=== PATIENT | female | born 1955 | race Two or more races ===

== ENCOUNTER 2023-02-25 21:15 | Inpatient (IN) | payer OTHER ==
[~2023-02-25] VITALS: Ht 157.5 cm; Wt 95.3 kg
[2023-02-25 22:25] LABS: ALANINE AMINOTRANSFERASE 13 U/L (12-78); ALBUMIN 3.1 g/dL (3.4-5.0); ALKALINE PHOSPHATASE 124 U/L (46-116); ASPARTATE AMINOTRANSFERASE 9 U/L (15-37); BILIRUBIN,DIRECT 0.2 mg/dL (0.0-0.2); BILIRUBIN,TOTAL 0.7 mg/dL (0.2-1.0); CALCIUM, SERUM 9.1 mg/dL (8.5-10.1); CARBON DIOXIDE 25 mmol/L (21-32); CHLORIDE 93 mmol/L (98-107); CREATININE 2.1 mg/dL (0.6-1.3); GLUCOSE 191 mg/dL (74-106); POTASSIUM 4.7 mmol/L (3.5-5.1); SODIUM SERUM 128 mmol/L (136-145); TOTAL PROTEIN, SERUM 7.9 g/dL (6.4-8.2); UREA NITROGEN, BLOOD 69 mg/dL (7-18)
[2023-02-25] MEDS ORDERED: IV NS 0.9% 1,000 ML BAG IV ONE (23:30)
[2023-02-25 23:54] LABS: BASOPHILS % (AUTO) 0.1 % (0.0-2.0); HEMATOCRIT 35 % (33-45); HEMOGLOBIN 11.6 g/dL (11.5-14.8); LYMPHOCYTES # (AUTO) 0.6 K/uL (0.8-4.8); LYMPHOCYTES % (AUTO) 5.4 % (20.0-44.0); MEAN CORPUSCULAR HEMOGLOBIN 32 PG (26.0-33.0); MEAN CORPUSCULAR HGB CONC 33 g/dl (31.0-36.0); MEAN CORPUSCULAR VOLUME 97 fL (82-100); MONOCYTES # (AUTO) 0.8 K/uL (0.1-1.30); MONOCYTES % (AUTO) 7.3 % (2.0-12.0); NEUTROPHILS # (AUTO) 9.3 K/uL (1.8-8.9); NEUTROPHILS % (AUTO) 87.2 % (43.0-81.0); PLATELET COUNT (AUTO) 224 K/uL (150-450); RED BLOOD CELL COUNT(AUTO) 3.66 MIL/uL (4.0-5.2); RED CELL DISTRIBUTION WIDTH 13.5 % (11.5-15.0); WHITE BLOOD COUNT (AUTO) 10.6 K/uL (4.3-11.0)
[2023-02-26] MEDS ORDERED: ONDANSETRON HCL/PF 4 MG/2 ML VIAL IVP PRN (01:00)
[2023-02-26] MEDS ORDERED: MAG HYDROX/AL HYDROX/SIMETH 30 ML UDC PO PRN (01:00)
[2023-02-26] MEDS ORDERED: Z GUARD REMEDY 4 OZ OINT TP PRN (01:00)
[2023-02-26] MEDS ORDERED: MAGNESIUM HYDROXIDE 30 ML UDC PO PRN (01:00)
[2023-02-26] MEDS ORDERED: DEXTROSE 50%-WATER 50 ML DISP.SYRIN IV PRN (01:00)
[2023-02-26] MEDS ORDERED: ZOLPIDEM TARTRATE 5 MG TABLET PO PRN (01:00)
[2023-02-26] MEDS ORDERED: hydrALAZINE HCL IV 20 MG VIAL IV PRN (01:00)
[2023-02-26 07:29] LABS: BASOPHILS % (AUTO) 0.2 % (0.0-2.0); EOSINOPHILS % (AUTO) 0.2 % (0.0-6.0); HEMATOCRIT 30 % (33-45); HEMOGLOBIN 9.9 g/dL (11.5-14.8); LYMPHOCYTES # (AUTO) 1.1 K/uL (0.8-4.8); LYMPHOCYTES % (AUTO) 13.3 % (20.0-44.0); MEAN CORPUSCULAR HEMOGLOBIN 32 PG (26.0-33.0); MEAN CORPUSCULAR HGB CONC 33 g/dl (31.0-36.0); MEAN CORPUSCULAR VOLUME 95 fL (82-100); MONOCYTES # (AUTO) 0.8 K/uL (0.1-1.30); MONOCYTES % (AUTO) 9.8 % (2.0-12.0); NEUTROPHILS # (AUTO) 6.5 K/uL (1.8-8.9); NEUTROPHILS % (AUTO) 76.5 % (43.0-81.0); PLATELET COUNT (AUTO) 193 K/uL (150-450); RED CELL DISTRIBUTION WIDTH 13.3 % (11.5-15.0); WHITE BLOOD COUNT (AUTO) 8.5 K/uL (4.3-11.0)
[2023-02-26] MEDS: ACETAMINOPHEN 325 MG TABLET PO PRN ×2 (08:18→21:43)
[2023-02-26 08:22] LABS: CALCIUM, SERUM 8.5 mg/dL (8.5-10.1); CREATININE 1.9 mg/dL (0.6-1.3); MAGNESIUM 2.2 mg/dL (1.8-2.4); PHOSPHORUS 4.1 mg/dL (2.5-4.9); POTASSIUM 4.8 mmol/L (3.5-5.1)
[2023-02-26] MEDS: BLOOD SUGAR DIAGNOSTIC 1 EACH STRIP IN SCH ×4 (08:24→22:00)
[2023-02-26] MEDS ORDERED: FLUT16SP16 (08:27)
[2023-02-26] MEDS ORDERED: POTA20TA10 PO (08:27)
[2023-02-26] MEDS ORDERED: NEBI2.5T5 PO (08:27)
[2023-02-26] MEDS ORDERED: ROSU10TA2 PO (08:27)
[2023-02-26] MEDS ORDERED: BIOT10004 PO (08:27)
[2023-02-26] MEDS ORDERED: MAGN400T26 PO (08:27)
[2023-02-26] MEDS ORDERED: GUSE100A SQ (08:27)
[2023-02-26] MEDS ORDERED: MONT10TA22 PO (08:27)
[2023-02-26] MEDS ORDERED: HYDR-4077 PO (08:27)
[2023-02-26] MEDS ORDERED: CYAN-51 PO (08:27)
[2023-02-26] MEDS ORDERED: DULO60CA45 PO (08:27)
[2023-02-26] MEDS ORDERED: OMEG1CAP PO (08:27)
[2023-02-26] MEDS ORDERED: METH500T6 PO (08:27)
[2023-02-26] MEDS ORDERED: CETI-108 PO (08:27)
[2023-02-26] MEDS ORDERED: LIDO30AD10 TP (08:27)
[2023-02-26] MEDS ORDERED: ALBU18HF2 IH (08:27)
[2023-02-26] MEDS ORDERED: APRE30TA2 PO (08:27)
[2023-02-26] MEDS ORDERED: NYST60PO TOP (08:27)
[2023-02-26] MEDS ORDERED: TURM500C9 PO (08:27)
[2023-02-26] MEDS ORDERED: MUPI22OI7 TP (08:27)
[2023-02-26] MEDS ORDERED: BUDE10.22 IH (08:27)
[2023-02-26] MEDS ORDERED: TACR30OI4 TP (08:27)
[2023-02-26] MEDS ORDERED: METO5TAB7 PO (08:27)
[2023-02-26 08:29] LABS: THYROID STIMULATING HORMONE 1.385 uIU/mL (0.358-3.74)
[2023-02-26 09:00] VITALS: BP 146/39; TEMP 99.3; O2SAT 97
[2023-02-26] MEDS ORDERED: PANTOPRAZOLE 40 MG VIAL IV SCH (09:00)
[2023-02-26] MEDS: INSULIN REGULAR, HUMAN 100 UNIT/ML 3 ML VIAL SQ PRN ×3 (12:30→23:05)
[2023-02-26 16:00] VITALS: BP 114/50; TEMP 97.7; O2SAT 99
[2023-02-26 20:00] VITALS: BP 118/46; TEMP 98.6; O2SAT 99
[2023-02-26] MEDS: HEPARIN SODIUM, PORCINE 5000 UNITS/1 ML VIAL SQ SCH (21:45)
[2023-02-27] MEDS: BLOOD SUGAR DIAGNOSTIC 1 EACH STRIP IN SCH ×4 (06:47→21:40)
[2023-02-27 07:23] LABS: BASOPHILS % (AUTO) 0.2 % (0.0-2.0); EOSINOPHILS # (AUTO) 0.1 K/uL (0.0-0.7); EOSINOPHILS % (AUTO) 0.9 % (0.0-6.0); HEMATOCRIT 28 % (33-45); HEMOGLOBIN 9.5 g/dL (11.5-14.8); LYMPHOCYTES % (AUTO) 15.1 % (20.0-44.0); MEAN CORPUSCULAR HEMOGLOBIN 33 PG (26.0-33.0); MEAN CORPUSCULAR HGB CONC 35 g/dl (31.0-36.0); MEAN CORPUSCULAR VOLUME 95 fL (82-100); MONOCYTES # (AUTO) 0.6 K/uL (0.1-1.30); NEUTROPHILS # (AUTO) 5.2 K/uL (1.8-8.9); NEUTROPHILS % (AUTO) 74.8 % (43.0-81.0); PLATELET COUNT (AUTO) 188 K/uL (150-450); RED CELL DISTRIBUTION WIDTH 13.5 % (11.5-15.0); WHITE BLOOD COUNT (AUTO) 6.9 K/uL (4.3-11.0)
[2023-02-27 08:00] VITALS: BP 116/40; TEMP 97.8; O2SAT 98
[2023-02-27 08:07] LABS: CALCIUM, SERUM 8.9 mg/dL (8.5-10.1); CREATININE 1.8 mg/dL (0.6-1.3); MAGNESIUM 2.3 mg/dL (1.8-2.4); PHOSPHORUS 3.9 mg/dL (2.5-4.9); POTASSIUM 4.1 mmol/L (3.5-5.1)
[2023-02-27 09:02] LABS: APPEARANCE,URINE SLIGHTLY CLOUDY (CLEAR); BILIRUBIN,URINE NEGATIVE (NEGATIVE); BLOOD, URINE NEGATIVE Ery/uL (NEGATIVE); COLOR,URINE YELLOW (YELLOW); KETONES,URINE NEGATIVE (NEGATIVE); LEUKOCYTE ESTERASE ,URINE TRACE (NEGATIVE); NITRITE, URINE NEGATIVE (NEGATIVE); PH,URINE 6.5 (5.0-8.0); PROTEIN,URINE TRACE mg/dl (NEGATIVE); UGLUCOSE NEGATIVE (NEGATIVE); UROBILINOGEN,URINE 0.2 EU/dL (0.2)
[2023-02-27 09:03] LABS: ADD URINE CULTURE NO; BACTERIA,URINE Rare /HPF (None Seen); RBC,URINE 0-2 /HPF (0-2); SQUAMOUS EPITHELIAL CELL,UR Moderate /HPF (None Seen); WBC,URINE 0-2 /HPF (0-3)
[2023-02-27] MEDS: HEPARIN SODIUM, PORCINE 5000 UNITS/1 ML VIAL SQ SCH ×2 (09:13→21:50)
[2023-02-27 09:14] LABS: EOSINOPHIL,URINE None Seen
[2023-02-27 09:14] LABS: THYROID STIMULATING HORMONE 1.654 uIU/mL (0.358-3.74); URIC ACID 11.3 mg/dL (2.6-7.2)
[2023-02-27] MEDS: PANTOPRAZOLE 40 MG TABLET.DR PO SCH (09:14)
[2023-02-27] MEDS: ACETAMINOPHEN 325 MG TABLET PO PRN (10:05)
[2023-02-27] MEDS: INSULIN REGULAR, HUMAN 100 UNIT/ML 3 ML VIAL SQ PRN ×3 (12:51→22:12)
[2023-02-27] MEDS ORDERED: GUSELKUMAB SQ SCH (13:00)
[2023-02-27] MEDS: hydrALAZINE HCL 50 MG TABLET PO SCH ×3 (13:00→17:01)
[2023-02-27] MEDS ORDERED: cetrizine 10 MG TABLET PO PRN (13:00)
[2023-02-27] MEDS ORDERED: LIDOCAINE 5% (PATCH) 1 EA PATCH TP PRN (13:00)
[2023-02-27] MEDS ORDERED: FLUTICASONE PROPIONATE 16 GM BOTTLE NS PRN (13:00)
[2023-02-27] MEDS ORDERED: BUDESONIDE RESPULE INH 0.5 MG/2 ML AMPUL.NEB NEB PRN (13:30)
[2023-02-27] MEDS ORDERED: ALBUTEROL FS 2.5 MG/0.5 ML VIAL.NEB NEB PRN (13:30)
[2023-02-27] MEDS ORDERED: IPRATROPIUM NEB FS 0.5 MG/2.5 ML AMPUL.NEB NEB PRN (13:30)
[2023-02-27 15:35] VITALS: BP 117/55; TEMP 98.2; O2SAT 97
[2023-02-27] MEDS: METHOCARBAMOL (500MG) 500 MG TABLET PO SCH (16:39)
[2023-02-27] MEDS: MUPIROCIN OINT 2% 22 GM TUBE TP SCH (16:40)
[2023-02-27] MEDS: NYSTATIN TOP POWDER 15 GM BOTTLE TP SCH (16:40)
[2023-02-27 20:00] VITALS: BP 114/61; TEMP 98.2; O2SAT 97
[2023-02-27 20:56] VITALS: BP 114/61; TEMP 98.2; O2SAT 97
[2023-02-27] MEDS: METOPROLOL TARTRATE 25 MG TABLET PO SCH (21:39)
[2023-02-27] MEDS: MONTELUKAST SODIUM (10MG) 10 MG TABLET PO SCH (21:40)
[2023-02-27] MEDS: ATORVASTATIN 10 MG TABLET PO SCH (21:40)
[2023-02-28 04:08] LABS: PTH, INTACT 36 pg/mL (15-65)
[2023-02-28] MEDS: BLOOD SUGAR DIAGNOSTIC 1 EACH STRIP IN SCH ×4 (06:01→21:28)
[2023-02-28] MEDS: INSULIN REGULAR, HUMAN 100 UNIT/ML 3 ML VIAL SQ PRN ×3 (06:01→16:49)
[2023-02-28 06:51] LABS: BASOPHILS % (AUTO) 0.3 % (0.0-2.0); EOSINOPHILS # (AUTO) 0.1 K/uL (0.0-0.7); EOSINOPHILS % (AUTO) 2.5 % (0.0-6.0); HEMATOCRIT 28 % (33-45); HEMOGLOBIN 9.2 g/dL (11.5-14.8); LYMPHOCYTES # (AUTO) 0.9 K/uL (0.8-4.8); LYMPHOCYTES % (AUTO) 15.9 % (20.0-44.0); MEAN CORPUSCULAR HEMOGLOBIN 32 PG (26.0-33.0); MEAN CORPUSCULAR HGB CONC 34 g/dl (31.0-36.0); MEAN CORPUSCULAR VOLUME 96 fL (82-100); MONOCYTES # (AUTO) 0.5 K/uL (0.1-1.30); MONOCYTES % (AUTO) 8.4 % (2.0-12.0); NEUTROPHILS # (AUTO) 4.2 K/uL (1.8-8.9); NEUTROPHILS % (AUTO) 72.9 % (43.0-81.0); PLATELET COUNT (AUTO) 193 K/uL (150-450); RED BLOOD CELL COUNT(AUTO) 2.87 MIL/uL (4.0-5.2); RED CELL DISTRIBUTION WIDTH 13.8 % (11.5-15.0); WHITE BLOOD COUNT (AUTO) 5.7 K/uL (4.3-11.0)
[2023-02-28 07:16] LABS: CALCIUM, SERUM 8.4 mg/dL (8.5-10.1); CREATININE 1.9 mg/dL (0.6-1.3); MAGNESIUM 2.3 mg/dL (1.8-2.4); PHOSPHORUS 3.5 mg/dL (2.5-4.9); POTASSIUM 4.3 mmol/L (3.5-5.1)
[2023-02-28 08:00] VITALS: BP 135/40; TEMP 98.6; O2SAT 98
[2023-02-28] MEDS: DULOXETINE HCL 30 MG CAPSULE.DR PO SCH (08:09)
[2023-02-28] MEDS: METHOCARBAMOL (500MG) 500 MG TABLET PO SCH ×2 (08:09→16:12)
[2023-02-28] MEDS: CYANOCOBALAMIN 500 MCG TABLET PO SCH (08:09)
[2023-02-28] MEDS: POTASSIUM CHLORIDE 20 MEQ TAB.PRT.SR PO SCH (08:09)
[2023-02-28] MEDS: PANTOPRAZOLE 40 MG TABLET.DR PO SCH (08:09)
[2023-02-28] MEDS: MAGNESIUM OXIDE 400 MG TABLET PO SCH (08:09)
[2023-02-28] MEDS: HEPARIN SODIUM, PORCINE 5000 UNITS/1 ML VIAL SQ SCH ×2 (08:10→21:10)
[2023-02-28] MEDS: METOPROLOL TARTRATE 25 MG TABLET PO SCH ×2 (08:11→21:00)
[2023-02-28] MEDS ORDERED: Medication Not On Formulary EA (Biotin 1,000 MCG) PO SCH (09:00)
[2023-02-28] MEDS ORDERED: Medication Not On Formulary EA (Apremilast (Otezla) 30 MG) PO SCH (09:00)
[2023-02-28] MEDS ORDERED: Medication Not On Formulary EA (Omega-3 Fatty Acids/Fish Oil (Fish Oil 1,000 Mg Capsule) PO SCH (09:00)
[2023-02-28] MEDS: MUPIROCIN OINT 2% 22 GM TUBE TP SCH ×2 (09:07→16:15)
[2023-02-28 09:11] LABS: *SPE A/G RATIO 0.7 (0.7-1.7); *SPE ALBUMIN 2.2 g/dL (2.9-4.4); *SPE ALPHA-1-GLOBULIN 0.4 g/dL (0.0-0.4); *SPE ALPHA-2-GLOBULIN 0.9 g/dL (0.4-1.0); *SPE M-SPIKE Not Observed g/dL (Not Observed); *SPE PROTEIN TOTAL 5.2 g/dL (6.0-8.5); *SPEGAMMA GLOBULIN 0.7 g/dL (0.4-1.8)
[2023-02-28] MEDS: NYSTATIN TOP POWDER 15 GM BOTTLE TP SCH ×2 (10:04→16:15)
[2023-02-28] MEDS: hydrALAZINE HCL 50 MG TABLET PO SCH ×2 (12:50→16:17)
[2023-02-28 16:00] VITALS: BP 111/64; TEMP 98.9; O2SAT 99
[2023-02-28 20:00] VITALS: BP 129/35; TEMP 97.9; O2SAT 100
[2023-02-28] MEDS: ATORVASTATIN 10 MG TABLET PO SCH (21:11)
[2023-02-28] MEDS: MONTELUKAST SODIUM (10MG) 10 MG TABLET PO SCH (21:11)
[2023-03-01] MEDS: BLOOD SUGAR DIAGNOSTIC 1 EACH STRIP IN SCH ×3 (06:31→17:02)
[2023-03-01 07:17] LABS: BASOPHILS % (AUTO) 0.5 % (0.0-2.0); EOSINOPHILS # (AUTO) 0.1 K/uL (0.0-0.7); EOSINOPHILS % (AUTO) 2.5 % (0.0-6.0); HEMATOCRIT 28 % (33-45); HEMOGLOBIN 9.1 g/dL (11.5-14.8); LYMPHOCYTES # (AUTO) 1.2 K/uL (0.8-4.8); LYMPHOCYTES % (AUTO) 21.2 % (20.0-44.0); MEAN CORPUSCULAR HEMOGLOBIN 32 PG (26.0-33.0); MEAN CORPUSCULAR HGB CONC 33 g/dl (31.0-36.0); MEAN CORPUSCULAR VOLUME 96 fL (82-100); MONOCYTES # (AUTO) 0.5 K/uL (0.1-1.30); NEUTROPHILS # (AUTO) 3.8 K/uL (1.8-8.9); NEUTROPHILS % (AUTO) 66.8 % (43.0-81.0); PLATELET COUNT (AUTO) 205 K/uL (150-450); RED BLOOD CELL COUNT(AUTO) 2.87 MIL/uL (4.0-5.2); RED CELL DISTRIBUTION WIDTH 13.4 % (11.5-15.0); WHITE BLOOD COUNT (AUTO) 5.7 K/uL (4.3-11.0)
[2023-03-01 07:36] LABS: CALCIUM, SERUM 6.8 mg/dL (8.5-10.1); CREATININE 1.8 mg/dL (0.6-1.3); MAGNESIUM 2.3 mg/dL (1.8-2.4)
[2023-03-01 07:48] LABS: C-REACTIVE PROTEIN 10.76 mg/dL (0.0-0.30)
[2023-03-01] MEDS ORDERED: predniSONE 10 MG TABLET PO SCH (09:00)
[2023-03-01] MEDS: METOPROLOL TARTRATE 25 MG TABLET PO SCH (09:00)
[2023-03-01] MEDS: hydrALAZINE HCL 50 MG TABLET PO SCH ×4 (09:00→17:02)
[2023-03-01] MEDS: METHOCARBAMOL (500MG) 500 MG TABLET PO SCH ×2 (09:39→17:01)
[2023-03-01] MEDS: POTASSIUM CHLORIDE 20 MEQ TAB.PRT.SR PO SCH (09:39)
[2023-03-01] MEDS: DULOXETINE HCL 30 MG CAPSULE.DR PO SCH (09:39)
[2023-03-01] MEDS: CYANOCOBALAMIN 500 MCG TABLET PO SCH (09:39)
[2023-03-01] MEDS: MAGNESIUM OXIDE 400 MG TABLET PO SCH (09:40)
[2023-03-01] MEDS: PANTOPRAZOLE 40 MG TABLET.DR PO SCH (09:40)
[2023-03-01] MEDS: HEPARIN SODIUM, PORCINE 5000 UNITS/1 ML VIAL SQ SCH (09:48)
[2023-03-01] MEDS ORDERED: predniSONE 20 MG TABLET PO SCH (09:50)
[2023-03-01] MEDS: NYSTATIN TOP POWDER 15 GM BOTTLE TP SCH ×2 (09:52→17:03)
[2023-03-01] MEDS: MUPIROCIN OINT 2% 22 GM TUBE TP SCH ×2 (09:57→17:03)
[2023-03-01] MEDS: INSULIN REGULAR, HUMAN 100 UNIT/ML 3 ML VIAL SQ PRN ×2 (11:47→17:13)
[2023-03-01 17:02] VITALS: BP 138/40
[2023-03-01] MEDS ORDERED: HYDR20TA PO (17:12)
[2023-03-01] MEDS ORDERED: HYDR10TA PO (17:12)
== END 2023-03-01 20:40 | DRG 683 ==
LOC: ER 21:17 → TRANSITION 02-26 00:07 → MED 02-26 07:28
PROVIDERS: ADMIT Nurse Practitioner Family; ATTEND Nurse Practitioner Acute Care
DX: N17.9 Acute kidney failure, unspecified (principal); E27.40 Unspecified adrenocortical insufficiency; E87.1 Hypo-osmolality and hyponatremia; R62.7 Adult failure to thrive; R26.9 Unspecified abnormalities of gait and mobility; E11.22 Type 2 diabetes mellitus with diabetic chronic kidney disease; N18.9 Chronic kidney disease, unspecified; M79.7 Fibromyalgia; M72.2 Plantar fascial fibromatosis; D63.8 Anemia in other chronic diseases classified elsewhere; E86.1 Hypovolemia; I27.20 Pulmonary hypertension, unspecified; J44.9 Chronic obstructive pulmonary disease, unspecified; Z66 Do not resuscitate; Z88.2 Allergy status to sulfonamides; Z88.0 Allergy status to penicillin; R53.1 Weakness; G90.8 Other disorders of autonomic nervous system; M10.9 Gout, unspecified; L40.50 Arthropathic psoriasis, unspecified; M54.30 Sciatica, unspecified side; M79.662 Pain in left lower leg; M79.661 Pain in right lower leg; L30.4 Erythema intertrigo; I87.2 Venous insufficiency (chronic) (peripheral); M35.3 Polymyalgia rheumatica; R29.6 Repeated falls; Z88.1 Allergy status to other antibiotic agents
CPT/HCPCS: 36415; 71045-TC; 76770-TC; 80048-TC; 80061-TC; 80076-TC; 81001; 82550-TC; 82962-TC; 83735-TC; 83880; 83970; 84100-TC; 84155; 84165; 84443-TC; 84484-TC; 84550-TC; 85025-TC; 85652-TC; 86140-TC; 93307-TC; 93970-TC; 97110-TC; 97116-TC; 97530-TC; C9113; G0378; J0360; J1644; J1815; J2405; J7030